=== PATIENT | female | born 2000 | race Caucasian/White ===

== ENCOUNTER 2023-09-08 00:21 | Emergency (ER) | payer OTHER ==
[~2023-09-08] VITALS: Ht 160 cm; Wt 58.0 kg
[2023-09-08 01:00] VITALS: BP 117/65
[2023-09-09 17:42] LABS: HEPATITIS B SURFACE ANTIBODY <3.10 IU/L (())
[2023-09-09 19:00] LABS: HEPATITIS C AB CIA INTERP Negative (Negative)
[2023-09-09 19:14] LABS: HIV 1,2 COMBO ANTIGEN/ANTIBODY Negative (Negative)
== END 2023-09-08 01:00 | disposition home or self-care (01) ==
LOC: ED 00:21
PROVIDERS: Family Medicine
DX: S61.031A Puncture wound without foreign body of right thumb without damage to nail, initial encounter (principal); W46.0XXA Contact with hypodermic needle, initial encounter; Y92.239 Unspecified place in hospital as the place of occurrence of the external cause; Y93.89 Activity, other specified; Y99.0 Civilian activity done for income or pay
CPT/HCPCS: 36415; 84460; 86706; 86803; 99283